=== PATIENT | female | born 1965 | race Caucasian/White ===

== ENCOUNTER 2016-10-10 15:00 | Outpatient (RCR) | payer BC ==
[2016-10-11] MEDS ORDERED: NKM (04:10)
[2016-10-11] MEDS ORDERED: NORCO 7.5-3251 EACH ORAL (04:10)
[2016-10-11] MEDS ORDERED: PERCOCET 5-3251 EACH ORAL (06:46)
[2016-10-11] MEDS ORDERED: ZOFRAN ODT4 MG ORAL (06:46)
[2016-10-11] MEDS ORDERED: KEFLEX500 MG ORAL (06:46)
[2016-10-22] MEDS ORDERED: SYNTHROID125 MCG ORAL (09:35)
== END 2016-10-25 | disposition home or self-care (01) ==
LOC: WCC 15:00
DX: T86.821 Skin graft (allograft) (autograft) failure (principal)
CPT/HCPCS: G0277; G0463; 99204

== ENCOUNTER 2016-10-11 03:58 | Emergency (ER) | payer BC ==
[~2016-10-11] VITALS: Ht 170.2 cm; Wt 72.6 kg
[2016-10-11 04:10] VITALS: BP 105/66
[2016-10-11] MEDS ORDERED: NORCO 7.5-3251 EACH ORAL (04:10)
[2016-10-11] MEDS ORDERED: NKM (04:10)
[2016-10-11] MEDS ORDERED: fentaNYL 100 mcg/2 mL IV ONE (04:15)
--- NOTE | 2016-10-11 04:21 | Emergency Room Report ---
History of Present Illness General Chief Complaint: General Complaint Source: Patient Present Illness HPI Had breast surgery earlier yesterday. She's had a complication of having bleeding and wound dehiscence. She was seen at [facility] emergency department. She took [place] before coming here but vomited it back up. She still feels nauseated at this time. She's had several pad changes with blood. Her surgeon requested she come back here and asked to be called immediately when she arrived. She has pain 10/10 - sharp pressure in breast. Also has a low-grade fever at this time. Chronic back problems. No change. No dysuria, URI sy, chest pain (aside from breast). Slight headache. Anxious and frustrated about problem. Allergies: Coded Allergies: No Known Allergies (Unverified , 10/11/16) Patient History Past Medical History: see triage record Social History: Denies: smoking Social History Narrative RN Now: No : 5 Para: 3 Reviewed Nursing Documentation: PMH: Agreed, PSxH: Agreed Nursing Documentation-PMH Hx Asthma: Yes Review of Systems All Other Systems: negative except mentioned in HPI Physical Exam Vital Signs Date Time Temp Pulse Resp B/P Pulse Ox O2 Delivery O2 Flow Rate FiO2 10/11/16 04:06 100.0 92 16 105/66 98 Room Air Sp02 EP Interpretation: reviewed, normal General Appearance: well appearing, no apparent distress, GCS 15 Head: normocephalic Eyes: bilateral eye PERRL, bilateral eye normal inspection ENT: moist mucus membranes Neck: supple Respiratory: chest non-tender, lungs clear, normal breath sounds Cardiovascular #1: regular rate, rhythm Cardiovascular #2: 2+ radial (R) Gastrointestinal: normal inspection, normal bowel sounds, non tender, no mass, non-distended Musculoskeletal: back normal, gait/station normal, normal range of motion Neurologic: alert, oriented x3, grossly normal Psychiatric: mood/affect normal Skin: warm/dry, other - areola dark with ring of open post surgical area without active bleeding, no erythema Medical Decision Making Diagnostic Impression: Primary Impression: Post-op bleeding Qualified Codes: L76.21 - Postprocedural hemorrhage of skin and subcutaneous tissue following a dermatologic procedure Additional Impressions: Ischemic areola Fever Qualified Codes: R50.9 - Fever, unspecified ER Course The patient presents with postoperative bleeding from her left nipple. Differential includes arterial bleed,, hematoma, venous bleeding, amongst others. She has a low-grade temperature. She also has pain. We need to establish an IV in for pain medication and also medicine for nausea. We will obtain labs from [place] ED. Her surgeon has been called and is on the way in. Analgesia repeated. Labs not performed at [facility]. Ordered here. Slight anemia, normal WBC and coags. Surgeon performed some revision of wound. Improved. Outpatient treatment arranged by surgeon. Patient stable for outpatient observation and treatment. Laboratory Tests Test 10/11/16 06:10 White Blood Count 7.7 K/UL (4.8-10.8) Red Blood Count 3.84 M/UL (4.20-5.40) L Hemoglobin 11.1 G/DL (12.0-16.0) L Hematocrit 33.9 % (37.0-47.0) L Mean Corpuscular Volume 88 FL (80-99) Mean Corpuscular Hemoglobin 28.8 PG (27.0-31.0) Mean Corpuscular Hemoglobin Concent 32.7 G/DL (32.0-36.0) Red Cell Distribution Width 11.9 % (11.6-14.8) Platelet Count 195 K/UL (150-450) Mean Platelet Volume 6.9 FL (6.5-10.1) Neutrophils (%) (Auto) 70.1 % (45.0-75.0) Lymphocytes (%) (Auto) 23.0 % (20.0-45.0) Monocytes (%) (Auto) 6.1 % (1.0-10.0) Eosinophils (%) (Auto) 0.3 % (0.0-3.0) Basophils (%) (Auto) 0.6 % (0.0-2.0) Prothrombin Time 11.1 SEC (9.30-11.50) Prothrombin Time INR 1.1 (0.9-1.1) Sodium Level 137 mEQ/L (135-145) Potassium Level 3.5 mEQ/L (3.4-4.9) Chloride Level 102 mEQ/L (98-107) Carbon Dioxide Level 22 mEQ/L (20-30) Anion Gap 13 (5-15) Blood Urea Nitrogen 8 mg/dL (7-23) Creatinine 0.9 mg/dL (0.5-0.9) Estimate Glomerular Filtration Rate > 60 mL/min (>60) Glucose Level 111 mg/dL (74-106) H Calcium Level 8.9 mg/dL (8.6-10.2) Total Bilirubin 0.6 mg/dL (0.0-1.2) Aspartate Amino Transferase (AST) 32 U/L (5-40) Alanine Aminotransferase (ALT) 11 U/L (3-33) Alkaline Phosphatase 119 U/L (35-104) H Total Protein 6.6 g/dL (6.6-8.7) Albumin 3.4 g/dL (3.5-5.2) L Globulin 3.2 g/dL Albumin/Globulin Ratio 1.0 (1.0-2.7) Last Vital Signs Date Time Temp Pulse Resp B/P Pulse Ox O2 Delivery O2 Flow Rate FiO2 10/11/16 07:55 98.5 65 10 93/48 99 Room Air Status: improved Disposition: HOME, SELF-CARE Condition: Improved Scripts Ondansetron Odt* (ZOFRAN ODT*) 4 Mg Tab.rapdis 4 MG ORAL Q8H Y for Nausea & Vomiting, #8 TAB 1 Refill Prov: Hal Ceballos M.D. 10/11/16 Oxycodone/Acetaminophen 5-325* (PERCOCET 5-325 MG TABLET*) 1 Each Tablet 1 TAB ORAL Q6H Y for For Pain, #12 TAB Prov: Hal Ceballos M.D. 10/11/16 Cephalexin* (KEFLEX*) 500 Mg Capsule 500 MG ORAL Q6H, #28 CAP 0 Refills Prov: Hal Ceballos M.D. 10/11/16 Hal Ceballos M.D. Oct 11, 2016 04:21
[2016-10-11] MEDS: Nitroglycerin 2% oint pkt TOPIC ONE ×2 (04:43→05:14)
[2016-10-11] MEDS ORDERED: DiphenhydrAMINE 50mg/ml Inj IVP ONE (05:45)
[2016-10-11] MEDS ORDERED: Metoclopramide 10mg/2ml Inj IVP ONE (05:45)
[2016-10-11] MEDS ORDERED: HYDROmorphone 1mg/ml Carpuject IVP ONE (05:45)
[2016-10-11] MEDS ORDERED: Hydromorphone 0.5mg/0.5ml inj IVP ONE (05:45)
--- NOTE | 2016-10-11 05:47 | Consultation ---
History of Present Illness General Date patient seen: Oct 11, 2016 Time patient seen: 05:00 Present Illness HPI Patient underwent revision breast surgery with remove and replace of silicone implants from subglandular to subpectoral plane, mastopexy. She was noted to have venous congestion of the left areola at the end of the surgery and had the subcuticular and dermal sutures removed, with placement of warm compresses and nitrobid. She was seen in f/u on POD#1 and the NAC still appears ecchymotic but less so. She was started on HBOT which she tolerated well. She went to her local ER later the night of POD#1 because of bleeding from the periareolar area. She was transferred to [place] ER in order for me to assess her. She is currently c/o some nausea and mild pain. She has a low grade temperature. Allergies: Coded Allergies: No Known Allergies (Unverified , 10/11/16) Medication History Scheduled No Known Medications* (NKM - No Known Medications*), 0 ., (Reported) Scheduled PRN Hydrocodone Bit/Acetaminophen 7.5-325* ([place] 7.5-325*), 1 TAB ORAL Q4H PRN for For Pain, (Reported) Patient History Healthcare decision maker Resuscitation status Advanced Directive on File Physical Exam General Appearance: no apparent distress, alert Lines, tubes and drains: peripheral Breasts: other - Right breast healing well. Left NAC appears dusky. Coagulated blood around the circumference of the areola where the sutures had been removed in surgery. Cap refill is not as brisk as before. Cardiovascular/Chest: normal peripheral pulses Last 24 Hour Vital Signs Date Time Temp Pulse Resp B/P Pulse Ox O2 Delivery O2 Flow Rate FiO2 10/11/16 05:14 105/66 10/11/16 04:10 100.0 92 16 105/66 98 Room Air 10/11/16 04:06 100.0 92 16 105/66 98 Room Air Height (Feet): 5 Height (Inches): 7.00 Weight (Pounds): 160 Medications Current Medications Medications (Trade) Dose Ordered Sig/Kimi Route PRN Reason Start Time Stop Time Status Last Admin Dose Admin Sodium Chloride (Sodium Chloride 1000ml bag) 1,000 ml @ 300 mls/hr Q3H20M IV 10/11/16 04:15 11/10/16 04:14 10/11/16 04:42 Assessment/Plan Status: stable Assessment/Plan Patient s/p revision breast surgery with left NAC circulation issues. At the bedside the 6 subdermal sutures stabilizing the areola were also removed. The tissues were cleansed with saline. Nitrobid and xereform were placed and dressings changed. Discussed the possible outcomes ranging from complete salvage of the NAC to complete loss of the NAC and every scenario in between. For the present moment she will need to continue HBOT, apply nitrobid tid, and perform dressing changes. Will continue antibiotics as well. Will continue to monitor. All questions answered. BERNA DU Oct 11, 2016 05:47
[2016-10-11 06:10] VITALS: BP 110/64
[2016-10-11] MEDS ORDERED: ceFAZolin sod 1 GM in NS 55 ML IVPB ONE (06:15)
[2016-10-11 06:26] LABS: BASOPHILS % (AUTO) 0.6 % (0.0-2.0); EOSINOPHILS % (AUTO) 0.3 % (0.0-3.0); MEAN CORPUSCULAR HEMOGLOBIN 28.8 PG (27.0-31.0); MEAN CORPUSCULAR HGB CONC 32.7 G/DL (32.0-36.0); MEAN CORPUSCULAR VOLUME 88 FL (80-99); MEAN PLATELET VOLUME 6.9 FL (6.5-10.1); MONOCYTES % (AUTO) 6.1 % (1.0-10.0); NEUTROPHILS % (AUTO) 70.1 % (45.0-75.0); PLATELET COUNT 195 K/UL (150-450); RED BLOOD COUNT 3.84 M/UL (4.20-5.40); RED CELL DISTRIBUTION WIDTH 11.9 % (11.6-14.8); WHITE BLOOD COUNT 7.7 K/UL (4.8-10.8)
[2016-10-11 06:36] LABS: INR 1.1 (0.9-1.1); PROTHROMBIN TIME 11.1 SEC (9.30-11.50)
[2016-10-11 06:44] LABS: ALANINE AMINOTRANSFERASE 11 U/L (3-33); ANION GAP 13 (5-15); ASPARTATE AMINO TRANSFERASE 32 U/L (5-40); CALCIUM 8.9 mg/dL (8.6-10.2); CARBON DIOXIDE 22 mEQ/L (20-30); CHLORIDE 102 mEQ/L (98-107); CREATININE 0.9 mg/dL (0.5-0.9); GLOMERULAR FILTRATION RATE > 60 mL/min (>60); HEMOLYSIS 21; POTASSIUM 3.5 mEQ/L (3.4-4.9); SODIUM 137 mEQ/L (135-145); TOTAL PROTEIN 6.6 g/dL (6.6-8.7)
[2016-10-11] MEDS ORDERED: KEFLEX500 MG ORAL (06:46)
[2016-10-11] MEDS ORDERED: PERCOCET 5-3251 EACH ORAL (06:46)
[2016-10-11] MEDS ORDERED: ZOFRAN ODT4 MG ORAL (06:46)
[2016-10-11 07:55] VITALS: BP 93/48
== END 2016-10-11 07:55 | disposition home or self-care (01) ==
LOC: EMR 04:15
DX: L76.21 Postprocedural hemorrhage of skin and subcutaneous tissue following a dermatologic procedure (principal); R50.9 Fever, unspecified; I99.8 Other disorder of circulatory system; R51 Headache
CPT/HCPCS: 36415; 80053; 85025; 85610; 96360; 96365; 96374; 96375; 99284; J0690; J1170; J1200; J2405; J2765; J3010

== ENCOUNTER 2016-10-22 08:51 | Day surgery (SDC) | payer BC ==
[~2016-10-22] VITALS: Ht 170.2 cm; Wt 72.6 kg
[2016-10-22] VITALS (19 sets, daily range): BP systolic 104–133; BP diastolic 60–79
[~2016-10-22 08:51] MED LIST: KEFLEX500 MG ORAL; NKM; NORCO 7.5-3251 EACH ORAL; PERCOCET 5-3251 EACH ORAL; ZOFRAN ODT4 MG ORAL
[2016-10-22] MEDS ORDERED: SYNTHROID125 MCG ORAL (09:35)
--- NOTE | 2016-10-22 12:02 | Pre-Procedure Note/Attestation ---
Pre-Procedure Note/Attestation Complete Prior to Procedure Planned Procedure: left Procedure Narrative: Debridement of left breast wound with possible delayed primary closure. Indications for Procedure Pre-Operative Diagnosis: Left breast wound Attestation I attest that I discussed the nature of the procedure; its benefits; risks and complications; and alternatives (and the risks and benefits of such alternatives ), prior to the procedure, with the patient (or the patient's legal labor representative). I attest that, if there was a reasonable possibility of needing a blood transfusion, the patient (or the patient's legal labor representative) was given the [facility] standardized written summary, pursuant to the [place] Blood Safety Act ([place] Health and Safety Code # 1645, as amended). I attest that I re-evaluated the patient just prior to the surgery and that there has been no change in the patient's H&P, except as documented below: BERNA DU Oct 22, 2016 12:02
--- NOTE | 2016-10-22 12:33 | Anethesia Preoperative Eval ---
Anesthesia Pre-op PMH/ROS General Date of Evaluation: Oct 22, 2016 Time of Evaluation: 12:20 Anesthesiologist: Jennifer ASA Score: ASA 2 Mallampati Score Class I : Soft palate, uvula, fauces, pillars visible Class II: Soft palate, uvula, fauces visible Class III: Soft palate, base of uvula visible Class IV: Only hard plate visible Mallampati Classification: Class II Surgeon: Randy Diagnosis: Left breast wound Surgical Procedure: Debridement of left breast with closure Anesthesia History: PONV Family History: no anesthesia problems Allergies: Coded Allergies: No Known Allergies (Unverified , 10/11/16) Medications: see eMAR Past Medical History Cardiovascular: Denies: HTN, CAD, CT, valve dz, arrhythmia, other Pulmonary: Denies: asthma, COPD, GARRICK, other Gastrointestinal/Genitourinary: Denies: GERD, CRI, ESRD, other Endocrine: Reports: hypothyroidism, Denies: DM, steroids, other HEENT: Denies: cataract (L), cataract (R), glaucoma, [place] (L), [place] (R), other Hematology/Immune: Denies: anemia, DVT, bleeding disorder, other Musculoskeletal/Integumentary: Denies: OA, RA, DJD, DDD, edema, other PMH Narrative: Hypothyroid PSxH Narrative: Breast augmentation, debridement of ruptured breast implant, shoulder surgery, abdominoplasty, bladder sling, thoracic sympathectomy Anesthesia Pre-op Phys. Exam Physician Exam Last Vital Signs Date Time Temp Pulse Resp B/P (MAP) Pulse Ox O2 Delivery O2 Flow Rate FiO2 10/22/16 09:30 98.2 60 18 133/78 100 Room Air Constitutional: NAD Neurologic: CN 2-12 intact Cardiovascular: RRR, no M/R/G Respiratory: CTA Gastrointestinal: S/NT/ND Airway Exam Mallampati Score: Class II MO: full ROM: full Teeth: intact Anesthesia Pre-op A/P Labs WNL Urine Test Test 10/22/16 09:05 Urine HCG, Qualitative Negative Studies Pre-op Studies: EKG - Sinus lowell Risk Assessment & Plan Assessment: hypothyroid female for breast debridement and closure Plan: GA, TIVA Status Change Before Surgery: No Pre-Antibiotics Drug: Ancef Given Within 1 Hr of Incision: Yes Time Given: 13:45 BRENDA PHELAN M.D. Oct 22, 2016 12:33
[2016-10-22] MEDS ORDERED: Bacitracin 50000 Units Vial ONE (12:50)
[2016-10-22] MEDS ORDERED: Lidocaine 0.5% Epi 50 mL Vial ONE (12:50)
[2016-10-22] MEDS ORDERED: NS Irrig 1000ml ONE (13:00)
[2016-10-22] MEDS ORDERED: LR 1000ml ONE (13:00)
[2016-10-22] MEDS ORDERED: Midazolam 2mg/2ml Inj ONE (13:00)
[2016-10-22] MEDS ORDERED: Sterile Water Irrig 1000ml IRRIG ONE (13:00)
[2016-10-22] MEDS ORDERED: fentaNYL 100 mcg/2 mL IV ONE (13:00)
[2016-10-22] MEDS ORDERED: Propofol 10mg/ml 20ml IV ONE (13:00)
[2016-10-22] MEDS ORDERED: Lidocaine 1% Plain 30 ml INJ ONE (14:09)
[2016-10-22] MEDS ORDERED: LR 1000ml 1,000 ML IVLG SCH (14:14)
--- NOTE | 2016-10-22 14:14 | Immediate Post-Op Evaluation ---
Immediate Post-Op Evalulation Immediate Post-Op Evalulation Procedure: Left breast wound debridement and closure Date of Evaluation: Oct 22, 2016 Time of Evaluation: 15:37 IV Fluids: 700 Blood Pressure Systolic: 124 Blood Pressure Diastolic: 74 Pulse Rate: 63 Respiratory Rate: 10 O2 Sat by Pulse Oximetry: 100 Temperature (Fahrenheit): 97.8 Pain Score (1-10): 0 Nausea: No Vomiting: No Complications No complication Patient Status: awake, patent, none Hydration Status: adequate Drug: Ancef Given Within 1 Hr of Incision: Yes Time Given: 13:45 BRENDA PHELAN M.D. Oct 22, 2016 14:14
[2016-10-22] MEDS ORDERED: LR 1000ml 1,000 ML IV SCH (14:15)
[2016-10-22] MEDS ORDERED: DiphenhydrAMINE 50mg/ml Inj IVP PRN (14:15)
[2016-10-22] MEDS ORDERED: Metoclopramide 10mg/2ml Inj IVP PRN (14:15)
[2016-10-22] MEDS ORDERED: Meperidine 25mg/0.5ml Inj (FOR RIGORS ONLY) IV PRN (14:15)
[2016-10-22] MEDS ORDERED: Midazolam 2mg/2ml Inj IVP PRN (14:15)
[2016-10-22] MEDS ORDERED: Hydromorphone 0.5mg/0.5ml inj IVP PRN (14:15)
[2016-10-22] MEDS ORDERED: Nitroglycerin 2% oint pkt TOPIC ONE (14:22)
--- NOTE | 2016-10-22 15:35 | 48 Hour Post Anesthesia Eval ---
Post Anesthesia Evaluation Procedure: Left breast wound debridement and closure Date of Evaluation: Oct 22, 2016 Time of Evaluation: 16:00 Blood Pressure Systolic: 129 0: 70 Pulse Rate: 75 Respiratory Rate: 16 O2 Sat by Pulse Oximetry: 100 Airway: patent Nausea: No Vomiting: No Pain Intensity: 0 Hydration Status: adequate Cardiopulmonary Status: Stable Mental Status/LOC: patient returned to baseline Follow-up Care/Observations: As per surgery Post-Anesthesia Complications: No anesthetic complication Follow-up care needed: N/A BRENDA PHELAN M.D. Oct 22, 2016 15:35
--- NOTE | 2016-10-22 15:35 | Brief Operative Note ---
Immediate Post Operative Note Operative Note Pre-op Diagnosis: Left breast wound Procedure: Excisional debridement of left breast wound, pursed-string closure of areolar cut out. Post-op Diagnosis: same as pre-op Surgeon: Randy Anesthesiologist: Gregg Anesthesia: general Specimen: none Complications: none Condition: stable Fluids: IVF Estimated Blood Loss: minimal Drains: none Implant(s) used?: No BERNA UD Oct 22, 2016 15:35
--- NOTE | 2016-10-23 05:45 | Operative Note - Dictated ---
DATE OF OPERATION: 10/22/2016 SURGEON: Jaswinder Padilla M.D. ANESTHESIOLOGIST: Shen Rodriguez M.D. PREOPERATIVE DIAGNOSIS: Left breast wound with devitalized left nipple-areolar complex. POSTOPERATIVE DIAGNOSIS: Left breast wound with devitalized left nipple-areolar complex. OPERATION: Excisional debridement of left breast wound with selective debridement of nipple-areolar complex and delayed primary closure. ANESTHESIA: General anesthesia. OPERATIVE INDICATIONS: This is a 51-year-old female who underwent revision breast surgery on 10/09/2016. She had prior breast augmentation and circumareolar mastopexy 20 years ago with subglandular silicone implants. She started to have ruptured implant on the right and underwent removal and replacement of the implants with total capsulectomy as well as placement of new implants in the submuscular plane and mastopexy. At the conclusion, she developed venous congestion of the left nipple-areolar complex which was treated intraoperatively with release of all sutures, warm compresses, and followed by Nitro-Bid. She was seen over the next ensuing 24 hours and had some improvement, but started on hyperbaric oxygen. On postoperative day #2, she was evaluated and the nipple-areolar complex appeared more dusky. At this point, she was deemed to be outside the window of nipple-areolar grafting and so the decision was made to continue b.i.d. hyperbaric oxygen therapy and Nitro-Bid in addition and allow the area to demarcate. Over the ensuing 12 days' period, she has areas of demarcation of the entire nipple and the areola as well as to the peripheral subcutaneous tissue just around the areola. It was decided on postoperative day #13 to take her back to the operating room to perform debridement of this tissue as there is a concern that she may be at an increased risk for infection. The plan was to be judicious in the amount of debridement performed to remove all devitalized tissue to salvage any borderline viable nipple and areola knowing that she may need to have this further debrided and reconstructed at a later date. An operative plan was devised and agreed upon, informed consent was obtained, and she was scheduled for the surgery. OPERATIVE PROCEDURE: The patient was brought to the operating room and placed on the operating table in supine position. SCDs were placed on bilateral lower extremities and once general anesthesia was induced, all pressure points were padded, and her chest and abdomen were prepped and draped in usual sterile fashion. Once time-out was performed, sharp excisional debridement was performed of nonviable tissue surrounding the nipple and areola. The plane between the breast parenchyma and the skin flaps was identified and found and the hypergranulation tissue on the skin flap edge was debrided. Careful and selective debridement was performed of the frankly necrotic areola and nipple. An 18-gauge needle was then used to superficially poke the areola and there was brisk blood coming back. This was done in multiple locations of both the areola and the nipple. Based on this, it was decided to not proceed with complete removal of the nipple and areolar complex at this time as there might be a chance for some salvage of this. At this point, the 3-0 Prolene was used in a pursestring fashion to close the areolar wound down from 6 cm to 4 cm diameter. The single 4-0 Ethilon was used to tack the areola to the skin at the 12 o'clock position in a loose fashion. At this point, Nitro-Bid was then placed on the areola and nipple followed by Xeroform gauze and the old Steri-Strips were removed and replaced with new ones on both breasts. Dressings were then applied followed by a large surgical bra and the patient was then extubated and taken to the recovery room in stable condition. There were no complications. EBL was minimal. The patient tolerated the procedure well. Jaswinder Padilla M.D. DR: Amando JOB#: [id number] CC:
== END 2016-10-22 11:55 | disposition home or self-care (01) ==
LOC: SUR 08:51
DX: S21.002A Unspecified open wound of left breast, initial encounter (principal); X58.XXXA Exposure to other specified factors, initial encounter; Y92.89 Other specified places as the place of occurrence of the external cause; Y99.8 Other external cause status; E03.9 Hypothyroidism, unspecified; F41.9 Anxiety disorder, unspecified; F33.40 Major depressive disorder, recurrent, in remission, unspecified; J45.909 Unspecified asthma, uncomplicated; G43.909 Migraine, unspecified, not intractable, without status migrainosus; Z87.442 Personal history of urinary calculi; Z90.49 Acquired absence of other specified parts of digestive tract
CPT/HCPCS: 11042; 81025; J0690; J1170; J2001; J2250; J2405; J2704; J2765; J3010; J7120; 94003; 94150; J2180

== ENCOUNTER 2016-10-26 13:13 | Outpatient (RCR) | payer BC ==
[~2016-10-26 13:13] MED LIST changes: +SYNTHROID125 MCG ORAL
[2016-11-05] MEDS ORDERED: LEVOTHYROXINE125 MCG ORAL (06:30)
== END 2016-11-24 | disposition home or self-care (01) ==
LOC: WCC 13:13
DX: T86.821 Skin graft (allograft) (autograft) failure (principal)
CPT/HCPCS: G0277 ×16

== ENCOUNTER 2016-11-05 05:44 | Day surgery (SDC) | payer BC ==
[2016-11-05] VITALS (8 sets, daily range): BP systolic 105–119; BP diastolic 61–73
[~2016-11-05] VITALS: Ht 170.2 cm; Wt 72.6 kg
[2016-11-05] MEDS ORDERED: LEVOTHYROXINE125 MCG ORAL (06:30)
[2016-11-05] MEDS ORDERED: Bacitracin 50000 Units Vial ONE (06:46)
[2016-11-05] MEDS ORDERED: Lidocaine 1% 10mg/ml/Epi 0.005mg/ml 30ml vial INJ ONE (06:46)
[2016-11-05] MEDS ORDERED: LR 1000ml ONE (07:00)
[2016-11-05] MEDS ORDERED: Midazolam 2mg/2ml Inj ONE (07:00)
[2016-11-05] MEDS ORDERED: Propofol 200mg/20ml IV ONE (07:00)
[2016-11-05] MEDS ORDERED: Sterile Water Irrig 1000ml IRRIG ONE (07:00)
[2016-11-05] MEDS ORDERED: Propofol 1,000mg/ 100ml btl IV ONE (07:00)
[2016-11-05] MEDS ORDERED: NS Irrig 1000ml ONE (07:00)
[2016-11-05] MEDS ORDERED: ePHEDrine 50mg/ml Inj ONE (07:00)
[2016-11-05] MEDS ORDERED: Metoclopramide 10mg/2ml Inj ONE (07:00)
[2016-11-05] MEDS ORDERED: Dexamethasone 4mg/ml vial ONE (07:00)
--- NOTE | 2016-11-05 07:05 | Pre-Procedure Note/Attestation ---
Pre-Procedure Note/Attestation Complete Prior to Procedure Planned Procedure: left Procedure Narrative: Debridement left breast wound Indications for Procedure Pre-Operative Diagnosis: Left breast wound Attestation I attest that I discussed the nature of the procedure; its benefits; risks and complications; and alternatives (and the risks and benefits of such alternatives ), prior to the procedure, with the patient (or the patient's legal litigation claim representative). I attest that, if there was a reasonable possibility of needing a blood transfusion, the patient (or the patient's legal litigation claim representative) was given the [facility] standardized written summary, pursuant to the [place] Blood Safety Act ([place] Health and Safety Code # 1645, as amended). I attest that I re-evaluated the patient just prior to the surgery and that there has been no change in the patient's H&P, except as documented below: BERNA DU Nov 05, 2016 07:05
[2016-11-05] MEDS ORDERED: Nitroglycerin 2% oint pkt TOPIC ONE (08:11)
--- NOTE | 2016-11-05 08:53 | Immediate Post-Op Evaluation ---
Immediate Post-Op Evalulation Immediate Post-Op Evalulation Procedure: left breast debridement Date of Evaluation: Nov 05, 2016 Time of Evaluation: 08:41 IV Fluids: 600 Blood Pressure Systolic: 111 Blood Pressure Diastolic: 65 Pulse Rate: 85 Respiratory Rate: 14 O2 Sat by Pulse Oximetry: 100 Temperature (Fahrenheit): 97.1 Nausea: No Vomiting: No Complications none Patient Status: awake, reacts, patent Hydration Status: adequate Drug: ancef Given Within 1 Hr of Incision: Yes Time Given: 07:30 HUMZA MICHEL CRNA Nov 05, 2016 08:53
--- NOTE | 2016-11-05 08:55 | Anethesia Preoperative Eval ---
Anesthesia Pre-op PMH/ROS General Date of Evaluation: Nov 05, 2016 Time of Evaluation: 07:30 Anesthesiologist: yuliana ASA Score: ASA 2 Mallampati Score Class I : Soft palate, uvula, fauces, pillars visible Class II: Soft palate, uvula, fauces visible Class III: Soft palate, base of uvula visible Class IV: Only hard plate visible Mallampati Classification: Class II Surgeon: laura Diagnosis: breast wound Surgical Procedure: left breast debridement Anesthesia History: PONV Family History: no anesthesia problems Allergies: Coded Allergies: No Known Allergies (Unverified , 10/11/16) Medications: see eMAR Past Medical History Cardiovascular: Denies: HTN, CAD, [place], valve dz, arrhythmia, other Pulmonary: Denies: asthma, COPD, GARRICK, other Gastrointestinal/Genitourinary: Reports: GERD, Denies: CRI, ESRD, other Neurologic/Psychiatric: Reports: depression/anxiety Endocrine: Reports: hypothyroidism HEENT: Denies: cataract (L), cataract (R), glaucoma, [place] (L), [place] (R), other Hematology/Immune: Denies: anemia, DVT, bleeding disorder, other Musculoskeletal/Integumentary: Denies: OA, RA, DJD, DDD, edema, other PSxH Narrative: abdominoplasty, breast aug; Anesthesia Pre-op Phys. Exam Physician Exam Last Vital Signs Date Time Temp Pulse Resp B/P (MAP) Pulse Ox O2 Delivery O2 Flow Rate FiO2 11/05/16 06:44 97.3 65 18 105/73 99 Room Air Constitutional: NAD Neurologic: CN 2-12 intact Cardiovascular: RRR Respiratory: CTA Gastrointestinal: S/NT/ND Airway Exam Mallampati Classification 2 Mallampati Score: Class II MO: full ROM: full Dentures: no upper, no lower Anesthesia Pre-op A/P Labs Urine Test Test 11/05/16 06:35 Urine HCG, Qualitative Negative Studies Pre-op Studies: EKG - sr Risk Assessment & Plan Plan: general LMA TIVA Status Change Before Surgery: No Pre-Antibiotics Drug: ancef Given Within 1 Hr of Incision: Yes Time Given: 07:30 HUMZA MICHEL CRNA Nov 05, 2016 08:55
--- NOTE | 2016-11-05 08:57 | 48 Hour Post Anesthesia Eval ---
Post Anesthesia Evaluation Procedure: left breast debridement Date of Evaluation: Nov 05, 2016 Time of Evaluation: 08:56 Blood Pressure Systolic: 116 0: 64 Pulse Rate: 58 Respiratory Rate: 14 O2 Sat by Pulse Oximetry: 100 Airway: patent Nausea: No Vomiting: No Hydration Status: adequate Cardiopulmonary Status: stable Mental Status/LOC: patient returned to baseline Follow-up Care/Observations: per surgery Post-Anesthesia Complications: none HUMZA MICHEL CRNA Nov 05, 2016 08:57
[2016-11-05] MEDS ORDERED: Metoclopramide 10mg/2ml Inj IVP PRN (09:00)
[2016-11-05] MEDS ORDERED: Hydromorphone 0.5mg/0.5ml inj IVP PRN (09:00)
--- NOTE | 2016-11-05 22:45 | Operative Note - Dictated ---
DATE OF OPERATION: 11/05/2016 SURGEON: Jaswinder Padilla M.D. ANESTHESIA: [place] CRNA. PREOPERATIVE DIAGNOSIS: Left nipple-areolar complex wound. POSTOPERATIVE DIAGNOSIS: Left nipple-areolar complex wound. OPERATION: Debridement of left nipple-areolar complex with partial delayed primary closure. ANESTHESIA: General anesthesia. OPERATIVE INDICATIONS: This is a 51-year-old female, who underwent revision mastopexy augmentation and sustained venous and arterial insufficiency to her left nipple-areolar complex. She has been treated with dressing changes as well as hyperbaric oxygen and had undergone one prior debridement two weeks ago. She is now being returned for another debridement and attempted delayed primary closure. OPERATIVE PROCEDURE: The patient was seen in the preoperative area and the operative plan was discussed and agreed upon. Discussed with the patient that all attempts will be made to completely close the areolar edges at this setting, but the main emphasis will be on debriding any loosened eschar and fibrotic debris that was present. The patient was then taken back to the operating room and placed on the operating table in the supine position. Once general anesthesia was induced and SCDs have been placed in the bilateral lower extremities, her chest and abdomen were prepped and draped in the usual sterile fashion. A time-out was then performed and then using a combination of #15 scalpel as well as the iris scissors, debridement of the loose eschar as well as fibrotic debris was performed to healthy bleeding edges. At this point, a 5-0 Prolene was used in a simple interrupted fashion in several points that were able to be closed from the areolar cut out edge. In areas where there was deemed to be too much tension, this was not attempted and those areas were left open to continue dressing changes. At the end, small amount of nitropaste was placed on the areas where the 5-0 Prolene had been placed and this was followed by Xeroform gauze and ABD. The patient was then placed in a surgical bra and then extubated and taken to the recovery room in stable condition. There were no complications. EBL was scant. The patient tolerated the procedure well. Jaswinder Padilla M.D. DR: WALI JOB#: [id number] CC:
== END 2016-11-05 11:00 | disposition home or self-care (01) ==
LOC: SUR 05:44
DX: Z48.1 Encounter for planned postprocedural wound closure (principal); E03.9 Hypothyroidism, unspecified
CPT/HCPCS: 17999; 81025; 97597; J0690; J1100; J1170; J2250; J2405; J2704; J2765; J7120; 94003; 94150